=== PATIENT | female | born 1945 | race Caucasian/White ===

== ENCOUNTER 2020-10-30 16:57 | Inpatient (IN) | payer MEDICARE, OTHER ==
[~2020-10-30] VITALS: Ht 165.1 cm; Wt 54.2 kg
[2020-10-30 18:11] LABS: HEMOGLOBIN 16.3 gm/dl (12.3-15.3); RED BLOOD COUNT 5.44 M/UL (4.00-5.10); WHITE BLOOD COUNT 7.9 K/UL (4.5-11.0)
[2020-10-30 19:01] LABS: BUN/CREATININE RATIO 34 (0-10)
[2020-10-30] MEDS ORDERED: LANTUS SOL100 UNIT/1 SQ (22:59)
[2020-10-31 03:33] LABS: WHITE BLOOD COUNT 7.1 K/UL (4.5-11.0)
[2020-10-31 03:35] LABS: RED BLOOD COUNT 4.77 M/UL (4.00-5.10)
[2020-11-01 13:40] LABS: BUN/CREATININE RATIO 20 (0-10)
[2020-11-02 03:19] LABS: HEMOGLOBIN 13.5 gm/dl (12.3-15.3); RED BLOOD COUNT 4.48 M/UL (4.00-5.10); WHITE BLOOD COUNT 6.7 K/UL (4.5-11.0)
[2020-11-02 03:42] LABS: BUN/CREATININE RATIO 18 (0-10)
[2020-11-03 04:13] LABS: HEMOGLOBIN 13.4 gm/dl (12.3-15.3); RED BLOOD COUNT 4.52 M/UL (4.00-5.10); WHITE BLOOD COUNT 6.4 K/UL (4.5-11.0)
[2020-11-03 04:37] LABS: BUN/CREATININE RATIO 18 (0-10)
[2020-11-04 03:53] LABS: HEMOGLOBIN 13.4 gm/dl (12.3-15.3); RED BLOOD COUNT 4.56 M/UL (4.00-5.10); WHITE BLOOD COUNT 6.6 K/UL (4.5-11.0)
[2020-11-04 04:07] LABS: BUN/CREATININE RATIO 20 (0-10)
[2020-11-04] MEDS ORDERED: LISINOPRIL5 MG PO (11:42)
[2020-11-04] MEDS ORDERED: ASPIRIN EC81 MG PO (11:42)
[2020-11-04] MEDS ORDERED: ATORVASTATIN CA20 MG PO (11:42)
[2020-11-04] MEDS ORDERED: DIABETA 5 MG TAB5 MG PO (11:49)
[2020-11-04] MEDS ORDERED: PRINIVIL20 MG PO (11:49)
--- NOTE | 2020-11-04 14:27 | NUR ---
instructed patient daughter new scripts in envelope for patient discharge after rehab. verbalized understanding. Angélica Stover R.N.
== END 2020-11-04 22:48 | disposition short-term general hospital (02) | DRG 65 ==
LOC: ER1 16:57 → M/S 19:28 → CDU 19:28 → M/S 19:28
PROVIDERS: Family Medicine; Physician Assistant; ADMIT Internal Medicine
PROC: B24BZZ4 Ultrasonography of Heart with Aorta, Transesophageal (ICD-10-PCS; principal; 2020-11-01)
DX: I63.532 Cerebral infarction due to unspecified occlusion or stenosis of left posterior cerebral artery (principal); Z68.1 Body mass index [BMI] 19.9 or less, adult; G93.49 Other encephalopathy; I08.3 Combined rheumatic disorders of mitral, aortic and tricuspid valves; E11.9 Type 2 diabetes mellitus without complications; Z20.822 Contact with and (suspected) exposure to COVID-19; I10 Essential (primary) hypertension; R47.01 Aphasia; E87.6 Hypokalemia; H53.47 Heteronymous bilateral field defects; R63.6 Underweight; Z79.82 Long term (current) use of aspirin; Z79.4 Long term (current) use of insulin; Z88.0 Allergy status to penicillin; Z83.3 Family history of diabetes mellitus
CPT/HCPCS: ECHO; 36415; 70450; 70544; 70551; 71045; 80048; 80053; 80307; 81001; 82550; 82553; 82962; 83735; 83874; 84132; 84484; 85025; 87086; 93005; 93306; 93880; 97110-GP-CQ; 97116; 97116-GP-CQ; 97162; 97167; 97530-GP-CQ; 97535; 99285; G0480; J1650; J7030; U0002